=== PATIENT | female | born 1965 | race Caucasian/White ===

== ENCOUNTER 2016-10-08 17:59 | Emergency (ER) | payer MEDICAID, MEDICARE ==
--- NOTE | 2016-10-08 20:19 | RAD ---
INDICATION: Left wrist injury. TECHNIQUE: 3 views of the left wrist were obtained. FINDINGS: The bones are in normal alignment. No fracture is seen. 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 IMPRESSION: NO EVIDENCE FOR FRACTURE.
--- NOTE | 2016-10-08 20:20 | RAD ---
INDICATION: Left elbow injury. TECHNIQUE: 3 views of the left elbow were obtained. FINDINGS: The bones are in normal alignment. No joint effusion or fracture is seen. Joint spaces appear maintained. IMPRESSION: NO EVIDENCE FOR FRACTURE.
--- NOTE | 2016-10-08 20:21 | RAD ---
INDICATION: Left hip injury. COMPARISON: There are no prior studies available for comparison. TECHNIQUE: An AP view of the pelvis and frontal and lateral views of the left hip were obtained. FINDINGS: The bones are in normal alignment. No fracture is seen. Joint spaces appear maintained. The patient is status post posterior spinal fusion at the L5-S1 level with pedicle screws. IMPRESSION: NO EVIDENCE FOR FRACTURE, IF THE PATIENT'S SYMPTOMS PERSIST RECOMMEND FOLLOW-UP IMAGING.
--- NOTE | 2016-10-08 21:03 | ED ---
Adult Trauma - HPI Summary HPI Summary: 51F presents with left hip, wrist and elbow pain for 3 days. She slipped in water and fell. She has been able to ambulate since. She denies any LOC or head injury. She has history of back pain which takes fenatyl for. She has limited ROM of her wrist with pain. She denies any new numbness or tingling. She is right handed. She states she landed on her left side. - History of Current Complaint Chief Complaint: EDTraumaMultiple Stated Complaint: LT WRIST INJURY Time Seen by Provider: 10/08/16 19:24 Pain Intensity: 7 - Allergy/Home Medications Allergies/Adverse Reactions: Allergies Allergy/AdvReac Type Severity Reaction Status Date / Time Iodine Allergy Severe Airway Verified 10/08/16 19:56 Obstruction Shellfish Allergy Allergy Severe Airway Verified 10/08/16 19:56 Obstruction Morphine Allergy Intermediate Nausea And Verified 10/08/16 19:56 Vomiting IVP Allergy Severe Airway Uncoded 10/08/16 19:56 Obstruction Home Medications: Home Medications Amitriptyline HCl [Amitriptyline HCl-] 75 mg PO BEDTIME 10/08/16 [History Confirmed 10/08/16] Carisoprodol [Soma] 350 mg PO BID 10/08/16 [History Confirmed 10/08/16] Fentanyl [Duragesic] 150 mcg TRANSDERM DAILY 10/08/16 [History Confirmed ] SUMAtriptan SQ* [Imitrex SQ*] 6 mg SUBCUT SEE INSTRUCTIONS 10/08/16 [History Confirmed 10/08/16] PMH/Surg Hx/FS Hx/Imm Hx Endocrine/Hematology History: Denies: Hx Anticoagulant Therapy Cardiovascular History: Reports: Hx Hypertension Infectious Disease History: No Infectious Disease History: Denies: Traveled Outside the [place] in Last 30 Days - Family History Known Family History: Positive: Cardiac Disease - Social History Alcohol Use: Occasionally Substance Use Type: Reports: Prescribed Smoking Status (MU): Unknown if Ever Smoked Review of Systems Negative: Fever Negative: Chest Pain Negative: Shortness Of Breath Positive: Myalgia - left sided hip, elbow and wrist pain All Other Systems Reviewed And Are Negative: Yes Physical Exam Triage Information Reviewed: Yes Vital Signs On Initial Exam: Initial Vitals Temp Pulse Resp BP Pulse Ox 100.2 F 102 16 149/92 97 10/08/16 18:02 10/08/16 18:02 10/08/16 18:02 10/08/16 18:02 10/08/16 18:02 Vital Signs Reviewed: Yes Appearance: Positive: Well-Appearing Skin: Positive: Warm, Dry Head/Face: Positive: Normal Head/Face Inspection Eyes: Positive: Normal, EOMI, ZAID, Conjunctiva Clear ENT: Positive: Normal ENT inspection, Pharynx normal, TMs normal Respiratory/Lung Sounds: Positive: Clear to Auscultation, Breath Sounds Present Cardiovascular: Positive: Normal, RRR Musculoskeletal: Positive: Limited @ - wrist and elbow due to pain left, Other - good pulses, tenderness left elbow, wrist and hip, Diagnostics - Vital Signs Vital Signs Temp Pulse Resp BP Pulse Ox 10/08/16 19:51 96.8 F 81 14 131/90 97 10/08/16 18:02 100.2 F 102 16 149/92 97 - Laboratory Lab Statement: Any lab studies that have been ordered have been reviewed, and results considered in the medical decision making process. - Radiology hip, elbow, wrist Xray Interpretation: No Acute Changes Radiology Interpretation Completed By: Radiologist Adult Trauma Course/Dx - Course Course Of Treatment: 51F presents with left hip, wrist and elbow pain for 3 days. She slipped in water and fell. She has been able to ambulate since. She denies any LOC or head injury. She has history of back pain which takes fenatyl for. She has limited ROM of her wrist with pain. She denies any new numbness or tingling. She is right handed. She states she landed on her left side. tenderness over left wrist, elbow, and hip, xray normal. will treat as contusion. patient understands and agrees with plan. - Diagnoses Differential Diagnosis/HQI/PQRI: Positive: Abrasion(s), Contusion(s), Fracture Provider Diagnoses: Left wrist injury, Injury of left hip, Injury of left elbow Discharge - Discharge Plan Condition: Good Disposition: HOME Patient Education Materials: Hip Contusion (ED) Referrals: Jun GIFFORD,Rupesh Josue [Primary Care Provider] - Additional Instructions: Use normal pain medication Apply ice, rest, elevate Follow up with primary care physician within 5 days Return to ED if develop any new or worsening symptoms
[2016-10-08 21:17] VITALS: BP 121/78
== END 2016-10-08 21:18 | disposition home or self-care (01) ==
LOC: ED 17:59
DX: M25.532 Pain in left wrist (principal); S69.92XA Unspecified injury of left wrist, hand and finger(s), initial encounter; S59.902A Unspecified injury of left elbow, initial encounter; M25.552 Pain in left hip; S79.912A Unspecified injury of left hip, initial encounter; W01.0XXA Fall on same level from slipping, tripping and stumbling without subsequent striking against object, initial encounter; Y93.9 Activity, unspecified; Y92.9 Unspecified place or not applicable
CPT/HCPCS: 99282